=== PATIENT | male | born 1960 | race Two or more races ===

== ENCOUNTER 2023-08-23 16:00 | Inpatient (IN) | payer MEDICARE, OTHER ==
[~2023-08-23] VITALS: Ht 157.5 cm; Wt 61.2 kg
[2023-08-23] VITALS (8 sets, daily range): BP systolic 93–112; BP diastolic 74–87; TEMP 98.2; O2SAT 96–100
[2023-08-23] MEDS ORDERED: FUROSEMIDE 40 MG/4 ML VIAL ONE (16:22)
[2023-08-23] MEDS: FUROSEMIDE 40 MG/4 ML VIAL IV ONE (16:31)
[2023-08-23 16:54] LABS: BASOPHILS % (AUTO) 0.5 % (0.0-2.0); EOSINOPHILS # (AUTO) 0.1 K/uL (0.0-0.7); EOSINOPHILS % (AUTO) 1.7 % (0.0-6.0); HEMATOCRIT 53 % (39-51); HEMOGLOBIN 17.3 g/dL (13.5-17.5); LYMPHOCYTES # (AUTO) 1.6 K/uL (0.8-4.8); LYMPHOCYTES % (AUTO) 20.7 % (20.0-44.0); MEAN CORPUSCULAR HEMOGLOBIN 30 PG (26.0-33.0); MEAN CORPUSCULAR HGB CONC 32 g/dl (31.0-36.0); MEAN CORPUSCULAR VOLUME 92 fL (80-96); MONOCYTES # (AUTO) 0.7 K/uL (0.1-1.30); MONOCYTES % (AUTO) 9.5 % (2.0-12.0); NEUTROPHILS # (AUTO) 5.2 K/uL (1.8-8.9); NEUTROPHILS % (AUTO) 67.6 % (43.0-81.0); PLATELET COUNT (AUTO) 256 K/uL (150-450); RED BLOOD CELL COUNT(AUTO) 5.81 MIL/uL (4.5-6.0); RED CELL DISTRIBUTION WIDTH 15.2 % (11.5-15.0); WHITE BLOOD COUNT (AUTO) 7.6 K/uL (4.3-11.0)
[2023-08-23 17:03] LABS: ALANINE AMINOTRANSFERASE 137 U/L (12-78); ALBUMIN 3.2 g/dL (3.4-5.0); ALKALINE PHOSPHATASE 135 U/L (46-116); ASPARTATE AMINOTRANSFERASE 88 U/L (15-37); BILIRUBIN,DIRECT 0.2 mg/dL (0.0-0.2); BILIRUBIN,TOTAL 0.6 mg/dL (0.2-1.0); CARBON DIOXIDE 29 mmol/L (21-32); CHLORIDE 97 mmol/L (98-107); CREATININE 0.8 mg/dL (0.6-1.3); GLUCOSE 103 mg/dL (74-106); NT-PRO BNP 2200 pg/mL (0-125); POTASSIUM 4.8 mmol/L (3.5-5.1); SODIUM SERUM 133 mmol/L (136-145); TOTAL PROTEIN, SERUM 7.6 g/dL (6.4-8.2); UREA NITROGEN, BLOOD 15 mg/dL (7-18)
[2023-08-23 17:07] LABS: INR 1.18 (0.91-1.10); PARTIAL THROMBOPLASTIN TIME 32.2 SEC (24.3-34.3); PROTHROMBIN TIME 12.4 SECS (9.2-11.1)
[2023-08-23 17:19] LABS: ABG BASE EXCESS -1.7 mmol/L; ABG OXYGEN SATURATION 97.5 % (92.0-98.5); ABG PCO2 38.9 mmHg (35.0-45.0); ABG PH 7.388 (7.350-7.450); ABG PO2 98.2 mmHg (75.0-100.0); ABG TOTAL HEMOGLOBIN 17.6 G/dL (13.5-18.0); COHb 0.5 % (0.5-1.5); MetHb 0.4 % (0.0-1.5); O2Hb 96.6 % (94.0-97.0); SITE, ABG Right Radial; VENT MODE, BG 15L NRB
[2023-08-23] MEDS ORDERED: ONDANSETRON HCL/PF 4 MG/2 ML VIAL IVP PRN (17:30)
[2023-08-23] MEDS ORDERED: ATOR20TA PO (17:43)
[2023-08-23] MEDS ORDERED: NINT150C PO (17:43)
[2023-08-23] MEDS ORDERED: METF-440 PO (17:43)
[2023-08-23] MEDS ORDERED: IV NS 0.9% 250 ML IV ONE (17:43)
[2023-08-23] MEDS ORDERED: ASPI-1169 PO (17:43)
[2023-08-23] MEDS ORDERED: IOHEXOL-350 100 ML VIAL IV ONE (17:43)
[2023-08-23] MEDS ORDERED: ENOXAPARIN SODIUM 40 MG/0.4 ML DISP.SYRIN SQ SCH ×2 (19:30→21:00)
[2023-08-23] MEDS: FUROSEMIDE 20 MG/2 ML VIAL IV SCH (21:00)
[2023-08-23] MEDS: methylPREDNISolone SOD SUCC 40 MG/ML VIAL IV SCH (21:04)
[2023-08-23] MEDS: ENOXAPARIN SODIUM 60 MG/0.6 ML DISP.SYRIN SQ ONE (21:06)
[2023-08-23] MEDS: ASPIRIN 81 MG TAB.CHEW PO ONE (21:07)
[2023-08-24] VITALS (42 sets, daily range): BP systolic 88–115; BP diastolic 67–80; TEMP 98.2–98.3; O2SAT 85–99
[2023-08-24 03:29] LABS: BASOPHILS % (AUTO) 0.4 % (0.0-2.0); EOSINOPHILS % (AUTO) 0.2 % (0.0-6.0); HEMATOCRIT 51 % (39-51); HEMOGLOBIN 16.9 g/dL (13.5-17.5); LYMPHOCYTES # (AUTO) 0.9 K/uL (0.8-4.8); MEAN CORPUSCULAR HEMOGLOBIN 30 PG (26.0-33.0); MEAN CORPUSCULAR HGB CONC 33 g/dl (31.0-36.0); MEAN CORPUSCULAR VOLUME 92 fL (80-96); MONOCYTES # (AUTO) 0.1 K/uL (0.1-1.30); MONOCYTES % (AUTO) 1.2 % (2.0-12.0); NEUTROPHILS # (AUTO) 8.2 K/uL (1.8-8.9); NEUTROPHILS % (AUTO) 88.2 % (43.0-81.0); PLATELET COUNT (AUTO) 247 K/uL (150-450); RED BLOOD CELL COUNT(AUTO) 5.59 MIL/uL (4.5-6.0); RED CELL DISTRIBUTION WIDTH 14.7 % (11.5-15.0); WHITE BLOOD COUNT (AUTO) 9.3 K/uL (4.3-11.0)
[2023-08-24 03:40] LABS: CALCIUM, SERUM 8.9 mg/dL (8.5-10.1); CREATININE 0.8 mg/dL (0.6-1.3); PHOSPHORUS 6.6 mg/dL (2.5-4.9); POTASSIUM 5.1 mmol/L (3.5-5.1)
[2023-08-24] MEDS ORDERED: NINTEDANIB ESYLATE 150 MG PO SCH (09:00)
[2023-08-24] MEDS: METFORMIN 500 MG TABLET PO SCH (09:04)
[2023-08-24] MEDS: ATORVASTATIN 10 MG TABLET PO SCH (09:05)
[2023-08-24] MEDS: ASPIRIN 81 MG TAB.CHEW PO SCH (09:05)
[2023-08-24] MEDS: ENOXAPARIN SODIUM 60 MG/0.6 ML DISP.SYRIN SQ SCH (09:08)
[2023-08-24] MEDS ORDERED: methylPREDNISolone SOD SUCC 1,000 MG in IV NS 0.9% 250 ML IV SCH (13:00)
[2023-08-24] MEDS: methylPREDNISolone SOD SUCC 1,000 MG in IV NS 0.9% 250 ML IV SCH (14:00)
[2023-08-24] MEDS: NINTEDANIB ESYLATE 150 MG PO SCH (16:34)
[2023-08-25] VITALS (29 sets, daily range): BP systolic 85–123; BP diastolic 54–102; TEMP 98.2–98.8; O2SAT 91–97
[2023-08-25 04:41] LABS: HEMATOCRIT 46 % (39-51); LYMPHOCYTES # (AUTO) 1.2 K/uL (0.8-4.8); LYMPHOCYTES % (AUTO) 9.1 % (20.0-44.0); MEAN CORPUSCULAR HEMOGLOBIN 29 PG (26.0-33.0); MEAN CORPUSCULAR HGB CONC 32 g/dl (31.0-36.0); MEAN CORPUSCULAR VOLUME 91 fL (80-96); MONOCYTES # (AUTO) 0.1 K/uL (0.1-1.30); NEUTROPHILS % (AUTO) 89.9 % (43.0-81.0); PLATELET COUNT (AUTO) 238 K/uL (150-450); RED BLOOD CELL COUNT(AUTO) 5.08 MIL/uL (4.5-6.0); RED CELL DISTRIBUTION WIDTH 14.9 % (11.5-15.0); WHITE BLOOD COUNT (AUTO) 13.4 K/uL (4.3-11.0)
[2023-08-25 04:57] LABS: CALCIUM, SERUM 8.2 mg/dL (8.5-10.1); CREATININE 0.9 mg/dL (0.6-1.3); MAGNESIUM 2.2 mg/dL (1.8-2.4); PHOSPHORUS 4.8 mg/dL (2.5-4.9); POTASSIUM 4.3 mmol/L (3.5-5.1)
[2023-08-25 17:54] LABS: ABG BASE EXCESS 4.7 mmol/L; ABG OXYGEN SATURATION 98.7 % (92.0-98.5); ABG PCO2 46.5 mmHg (35.0-45.0); ABG PH 7.428 (7.350-7.450); ABG TOTAL HEMOGLOBIN 16.7 G/dL (13.5-18.0); AaDO2 522.3 mmHg; COHb 0.6 % (0.5-1.5); MetHb 0.4 % (0.0-1.5); O2Hb 97.7 % (94.0-97.0); SITE, ABG Right Radial; VENT MODE, BG NON REBREATHER
[2023-08-25] MEDS: ACETAMINOPHEN 325 MG TABLET PO PRN (18:41)
[2023-08-25] MEDS ORDERED: FURO10VI IV (19:10)
[2023-08-25] MEDS ORDERED: [UNRECOGNIZED DRUG - CODE] IV (19:10)
[2023-08-25] MEDS ORDERED: ENOX60DI SQ (19:10)
== END 2023-08-25 20:40 | disposition short-term general hospital (02) | DRG 175 ==
LOC: ER 16:14 → ICU 20:14
PROVIDERS: ADMIT Nurse Practitioner Acute Care; ATTEND Nurse Practitioner Acute Care
PROC: 5A09357 Assistance with Respiratory Ventilation, Less than 24 Consecutive Hours, Continuous Positive Airway Pressure (ICD-10-PCS; principal; 2023-08-24)
DX: I26.99 Other pulmonary embolism without acute cor pulmonale (principal); I21.4 Non-ST elevation (NSTEMI) myocardial infarction; J96.21 Acute and chronic respiratory failure with hypoxia; Z20.822 Contact with and (suspected) exposure to COVID-19; E78.5 Hyperlipidemia, unspecified; E11.9 Type 2 diabetes mellitus without complications; Z76.82 Awaiting organ transplant status; I11.0 Hypertensive heart disease with heart failure; Z79.82 Long term (current) use of aspirin; Z79.84 Long term (current) use of oral hypoglycemic drugs; Z79.899 Other long term (current) drug therapy; I50.810 Right heart failure, unspecified; I27.20 Pulmonary hypertension, unspecified; J84.112 Idiopathic pulmonary fibrosis
CPT/HCPCS: 36415; 36600; 71045-TC; 80048-TC; 80076-TC; 82803-TC; 83735-TC; 83880; 84100-TC; 84484-TC; 85025-TC; 85378-TC; 85730-TC; 93307-TC; 93970-TC; 94799-TC; 99082-TC; A4223; G0378; J1650; J1940; J2920; J2930; J7050; Q9967